=== PATIENT | female | born 1970 | race Caucasian/White ===

== ENCOUNTER 2018-06-09 04:24 | Inpatient (IN) | payer OTHER ==
[~2018-06-09] VITALS: Ht 165.1 cm; Wt 87.3 kg
[2018-06-09 05:48] VITALS: BP 132/83
[2018-06-09 07:33] VITALS: BP 124/74
[2018-06-09 16:16] VITALS: BP 114/65
[2018-06-09 18:22] VITALS: BP 124/65
[2018-06-09 18:35] LABS: BASOPHIL (%) 0.2 % (0-1); EOSINOPHIL (%) 0 % (0-5); HEMATOCRIT 24.7 % (36.0-46.0); IMMATURE GRANULOCYTE (%) 0.3 % (0.0-0.7); LYMPHOCYTE (%) 7.6 % (15-42); LYMPHOCYTE COUNT 0.9 K/uL (1.0-2.8); MCH 30.4 PG (29.0-34.0); MCHC 34.8 G/DL (30.0-36.0); MCV 87.3 FL (83-99); MONOCYTE (%) 4.6 % (3-12); MONOCYTE COUNT 0.5 K/uL (0-0.8); NEUTROPHIL (%) 87.3 % (45-76); PLATELET COUNT 151 K/uL (156-360); RBC DIS.WIDTH-CV 12.9 % (11.8-14.6); RBC DIS.WIDTH-SD 41.2 % (39-53); WHITE BLOOD COUNT 11.5 K/uL (4.1-10.2)
[2018-06-09 18:42] LABS: HEMOGLOBIN 8.6 G/DL (11.9-15.5); RED BLOOD COUNT 2.83 M/uL (3.80-5.20)
[2018-06-09 19:25] VITALS: BP 123/66
[2018-06-09 23:32] VITALS: BP 114/65
[2018-06-10 06:30] LABS: BASOPHIL (%) 0.4 % (0-1); EOSINOPHIL (%) 0.6 % (0-5); HEMATOCRIT 22.2 % (36.0-46.0); HEMOGLOBIN 7.4 G/DL (11.9-15.5); IMMATURE GRANULOCYTE (%) 0.3 % (0.0-0.7); LYMPHOCYTE (%) 21.7 % (15-42); LYMPHOCYTE COUNT 1.5 K/uL (1.0-2.8); MCH 30.1 PG (29.0-34.0); MCHC 33.3 G/DL (30.0-36.0); MCV 90.2 FL (83-99); MONOCYTE (%) 6.5 % (3-12); MONOCYTE COUNT 0.4 K/uL (0-0.8); NEUTROPHIL (%) 70.5 % (45-76); NEUTROPHIL COUNT 4.8 K/uL (1.8-6.4); PLATELET COUNT 147 K/uL (156-360); RBC DIS.WIDTH-CV 13.2 % (11.8-14.6); RBC DIS.WIDTH-SD 43.1 % (39-53); RED BLOOD COUNT 2.46 M/uL (3.80-5.20); WHITE BLOOD COUNT 6.8 K/uL (4.1-10.2)
[2018-06-10 07:28] VITALS: BP 106/60
[2018-06-10] MEDS ORDERED: IBUPROFEN800 MG PO (10:50)
[2018-06-10] MEDS ORDERED: ENDOCET 5-3251 EACH PO (10:50)
[2018-06-10 11:00] VITALS: BP 105/63
[2018-06-10 15:52] VITALS: BP 114/67
[2018-06-10 18:59] VITALS: BP 112/64
[2018-06-10 23:08] VITALS: BP 116/66
== END 2018-06-11 14:15 | disposition home or self-care (01) | DRG 765 ==
LOC: 2SOUTH 04:24 → 2WEST 05:32 → 2SOUTH 10:10 → 2WEST 06-11 14:15
PROVIDERS: Obstetrics & Gynecology
PROC: 10D00Z1 Extraction of Products of Conception, Low, Open Approach (ICD-10-PCS; principal; 2018-06-09)
DX: O34.211 Maternal care for low transverse scar from previous cesarean delivery (principal); D62 Acute posthemorrhagic anemia; O99.02 Anemia complicating childbirth; Z3A.39 39 weeks gestation of pregnancy; Z37.0 Single live birth; O72.1 Other immediate postpartum hemorrhage
CPT/HCPCS: 36415; 81003; 85025; 86850; 86900; 86901; J0330; J0690; J1100; J1885; J2210; J2274; J2405; J2765; J3010; J7120